=== PATIENT | female | born 1945 | race Caucasian/White ===

== ENCOUNTER 2022-09-03 08:55 | Day surgery (SDC) | payer MEDICARE, BC ==
[~2022-09-03] VITALS: Ht 157.5 cm; Wt 57.8 kg
[~2022-09-03 08:55] MED LIST: ATOR40TA71 PO; CARV6.256 PO; ESCI20TA39 PO; PER5325T PO; SUCR1TAB PO; TEMA30CA PO
[2022-09-03 09:26] VITALS: BP 128/70
[2022-09-03] MEDS ORDERED: AMLO5TAB16 PO (09:43)
[2022-09-03] MEDS ORDERED: CLON0.1T2 PO (09:43)
[2022-09-03] MEDS ORDERED: CALC0.5C8 PO (09:43)
[2022-09-03] MEDS ORDERED: HYDR12.55 PO (09:43)
[2022-09-03] MEDS ORDERED: SODI650T29 PO (09:44)
[2022-09-03] MEDS ORDERED: LIDOcaine 1% 30ml preserv. free vial SQ STA (10:37)
--- NOTE | 2022-09-03 10:55 | NUR ---
pt discharged in stable condition. all belongings sent home with pt, per Dr. Salas resume all home meds. pt taken to private vehicle in wheelchair by RN. pt to follow up with Dr. Villeda. Per Dr. Salas biopsy not done.
== END 2022-09-03 11:00 | disposition home or self-care (01) ==
LOC: SSTAY O 08:55
PROVIDERS: ATTEND Internal Medicine Critical Care Medicine
DX: E07.9 Disorder of thyroid, unspecified (principal); Z53.8 Procedure and treatment not carried out for other reasons; Z88.2 Allergy status to sulfonamides; Z79.899 Other long term (current) drug therapy; I50.9 Heart failure, unspecified; D64.9 Anemia, unspecified; Z90.710 Acquired absence of both cervix and uterus; Z98.890 Other specified postprocedural states
CPT/HCPCS: A6449